=== PATIENT | female | born 1945 | race Caucasian/White ===

== ENCOUNTER 2016-06-18 19:48 | Emergency (ER) | payer MEDICARE, BC ==
--- NOTE | 2016-06-18 20:15 | EDM.PDOC ---
ED HPI GENERAL MEDICAL PROBLEM - General Chief Complaint: General Stated Complaint: COLD CLAMMY Time Seen by Provider: 06/18/16 19:50 Source of Information: Reports: Patient, Family History Limitations: Reports: No limitations - History of Present Illness INITIAL COMMENTS - FREE TEXT/NARRATIVE: 70-year-old female who was standing making a meal suddenly felt real warm, and diaphoretic and lightheaded. She became scared that she was having a stroke or heart attack. She she then became very clammy, pale, felt her pulse which was "slow". She then called her to take her in the hospital and began hyperventilating. On arrival she was hyperventilating and anxious, diaphoretic but had no pain, shortness of breath, nausea or vomiting. Over the next 20 minutes she normalized and her symptoms resolved. O2 saturations were 100% on arrival, initial blood pressure was 165/110. She was very anxious and uncomfortable. Location: Reports: generalized Severity: moderate Associated Symptoms: Reports: diaphoresis, malaise, weakness. Denies: fever/ chills - Related Data Allergies Allergy/AdvReac Type Severity Reaction Status Date / Time TAPE Allergy Rash Uncoded 06/16/14 08:19 Home Meds: Home Meds Aspirin [Adult Low Dose Aspirin EC] 1 tab PO DAILY 06/11/14 [History] Calcium Carbonate/Vitamin D3 [Calcium 250+D] 2 tab PO BID 06/11/14 [History] Ibuprofen 2 tab PO Q6HR 06/11/14 [History] Metoprolol Tartrate [Lopressor] 1 tab PO BID 06/11/14 [History] Sertraline [Zoloft] 0.5 tab PO DAILY 06/11/14 [History] Simvastatin [Zocor] 1 tab PO DAILY 06/11/14 [History] Multivitamin with Minerals [Multiple Vitamin] 1 tab PO DAILY 06/16/14 [History] Past Medical History HEENT History: Reports: Hard of hearing Cardiovascular History: Reports: Angina, High cholesterol, Hypertension Respiratory History: Reports: None MANAGER PARKING History: Reports: Psychiatric History: Reports: Depression Hematologic History: Reports: None Dermatologic History: Reports: Scleroderma - Past Surgical History HEENT Surgical History: Reports: Tonsillectomy Cardiovascular Surgical History: Reports: Other (see below) Other Cardiovascular Surgeries/Procedures: angiogram GI Surgical History: Reports: Appendectomy, Colonoscopy Musculoskeletal Surgical History: Reports: Arthroscopic knee Social & Family History - Tobacco Use Smoking Status *Q: Never Smoker - Caffeine Use Caffeine Use: Reports: None - Alcohol Use Days Per Week of Alcohol Use: 1 Number of Drinks Per Day: 1 Total Drinks Per Week: 1 - Recreational Drug Use Recreational Drug Use: No ED ROS GENERAL - Review of Systems Review Of Systems: See Below Constitutional: Reports: chills, malaise, weakness HEENT: Reports: No symptoms Respiratory: Reports: shortness of breath. Denies: cough Cardiovascular: Reports: Lightheadedness. Denies: Chest pain, Palpitations GI/Abdominal: Denies: Abdominal pain, Nausea, Vomiting : Reports: no symptoms Musculoskeletal: Reports: no symptoms Skin: Reports: diaphoresis Neurological: Reports: paresthesia (Paresthesias developed of the face hands and feet in route to the hospital) Psychiatric: Reports: Anxiety ED EXAM, GENERAL - Physical Exam Exam: See Below Exam Limited By: No limitations General Appearance: alert, no apparent distress Eye Exam: bilateral eye: normal inspection Head: atraumatic Respiratory/Chest: no respiratory distress, lungs clear Cardiovascular: regular rate, rhythm GI/Abdominal: soft, non tender Extremities: normal inspection. No: pedal edema Neurological: alert, oriented Psychiatric: anxious Skin Exam: Warm, Dry Course - Vital Signs Last Recorded V/S: Last Vital Signs Temp 95.5 F 06/18/16 20:39 Pulse 64 06/18/16 19:48 Resp 15 06/18/16 20:39 BP 141/84 H 06/18/16 20:39 Pulse Ox 97 06/18/16 20:39 - Orders/Labs/Meds Orders: Active Orders 24 hr Category Date Time Status EKG Documentation Completion [RC] ASDIRECTED Care 06/18/16 19:50 Active EKG 12 Lead [EK] Routine Ther 06/18/16 19:50 Ordered Labs: Laboratory Tests 06/18/16 06/18/16 Range/Units 19:40 19:40 WBC 6.3 (4.5-11.0) K/uL RBC 4.62 (3.30-5.50) M/uL Hgb 12.8 (12.0-15.0) g/dL Hct 39.4 (36.0-48.0) % MCV 85 (80-98) fL MCH 28 (27-31) pg MCHC 33 (32-36) % Plt Count 217 (150-400) K/uL Neut % (Auto) 51 (36-66) % Lymph % (Auto) 32 (24-44) % [place] % (Auto) 12 H (2-6) % Eos % (Auto) 4 (2-4) % Baso % (Auto) 1 (0-1) % Sodium 138 L (140-148) mmol/L Potassium 3.1 L (3.6-5.2) mmol/L Chloride 102 (100-108) mmol/L Carbon Dioxide 26 (21-32) mmol/L Anion Gap 13.1 (5.0-14.0) mmol/L BUN 23 H (7-18) mg/dL Creatinine 1.0 (0.6-1.0) mg/dL Est Cr Clr Drug Dosing 44.56 mL/min Estimated GFR (MDRD) 55 L (>60) Glucose 105 (74-106) mg/dL Calcium 9.2 (8.5-10.1) mg/dL Total Bilirubin 0.4 (0.2-1.0) mg/dL AST 24 (15-37) U/L ALT 30 (12-78) U/L Alkaline Phosphatase 63 (46-116) U/L Troponin I < 0.017 (0.000-0.056) ng/mL Total Protein 7.0 (6.4-8.2) g/dL Albumin 3.9 (3.4-5.0) g/dL Globulin 3.1 (2.3-3.5) g/dL Albumin/Globulin Ratio 1.3 (1.2-2.2) Meds: Medications Discontinued Medications Generic Name Dose Route Start Last Admin Trade Name Freq PRN Reason Stop Dose Admin Potassium Chloride 20 meq 06/18/16 20:55 06/18/16 21:08 Klor-Con M20 PO 06/18/16 20:56 20 meq ONETIME ONE Administration - Re-Assessments/Exams Free Text/Narrative Re-Assessment/Exam: 06/18/16 21:00 Patient remained comfortable and in normal sinus rhythm. EKG showed no acute findings. Her blood pressure normalized and O2 saturations normalized. Her labs were only significant for a potassium of 3.1, she was given 20 mEq by mouth and a prescription for 30 additional doses of 10 mEq to take one daily. She has a recheck with her primary care provider for a physical examination in one week, her potassium can be rechecked at that time. Departure - Departure Time of Disposition: 21:15 Disposition: Home, Self-Care 01 Condition: good Clinical Impression: Vasovagal near syncope, Hypokalemia Instructions: Hypokalemia, Syncope, [id number] Referrals: Guillaume Howard MD [Primary Care Provider] - Forms: ED Department Discharge Care Plan Goals: Take potassium supplement as prescribed, increase activity and diet as tolerated. Recheck with your primary physician as scheduled. Return anytime sooner if worsening or concerns. - My Orders Last 24 Hours: My Active Orders 06/18/16 19:50 EKG Documentation Completion [RC] ASDIRECTED EKG 12 Lead [EK] Routine - Assessment/Plan Last 24 Hours: My Active Orders 06/18/16 19:50 EKG Documentation Completion [RC] ASDIRECTED EKG 12 Lead [EK] Routine
[2016-06-18 20:42] VITALS: BP 141/84
[2016-06-18] MEDS ORDERED: Potassium Chloride 20 MEQ Tab.ER PO ONE (20:55)
== END 2016-06-18 21:14 | disposition home or self-care (01) ==
LOC: JP.ED 19:48
DX: R55 Syncope and collapse (principal); E87.6 Hypokalemia; E78.00 Pure hypercholesterolemia, unspecified; I10 Essential (primary) hypertension; Z98.890 Other specified postprocedural states; Z79.82 Long term (current) use of aspirin; Z79.899 Other long term (current) drug therapy
CPT/HCPCS: 36415; 80053; 84484; 85025; 93005; 99284; A9270; 93010

== ENCOUNTER 2020-11-22 13:16 | Emergency (ER) | payer MEDICARE, BC ==
[2020-11-22] MEDS ORDERED: methylPREDNISolone Sodium Succinate 125 MG/2 ML SDV IVPUSH ONE (13:17)
--- NOTE | 2020-11-22 14:03 | EDM.PDOC ---
ED HPI GENERAL MEDICAL PROBLEM - General Chief Complaint: Bite:Animal, Insect Stated Complaint: MEDICAL VIA [facility] Time Seen by Provider: 11/22/20 13:30 Source of Information: Reports: Patient, EMS History Limitations: Reports: No Limitations - History of Present Illness INITIAL COMMENTS - FREE TEXT/NARRATIVE: 75-year-old female without any previous reactions to bee stings other than local inflammatory responses, was stung by several hornets at least 9 times, 1 in the left eye, left neck, extremities and abdomen. She felt like her throat was swelling and was having difficulty breathing so called the ambulance. When the ambulance arrived she was stable but very anxious, hyperventilating, and IV was started and she was given 50 mg of IV Benadryl and transportation arranged. In route however she started feeling throat tightening and fullness so she was also given epinephrine. She arrives with localized erythema at the insect sting sites, but no other objective findings, vitals are stable. She is shaky and extremely anxious. Onset: Sudden Duration: Hour(s): (Stung within the last half hour) Location: Reports: Generalized Quality: Reports: Sharp, Stabbing Associated Symptoms: Reports: Malaise, Shortness of Breath, Other (Tremulous) - Related Data Allergies Allergy/AdvReac Type Severity Reaction Status Date / Time TAPE Allergy Rash Uncoded 11/22/20 13:29 Home Meds: Home Meds Calcium Carbonate/Vitamin D3 [Calcium 250+D] 2 tab PO BID 06/11/14 [History] Metoprolol Tartrate [Lopressor] 12.5 tab PO BID 06/11/14 [History] Sertraline [Zoloft] 50 mg PO DAILY 06/11/14 [History] Simvastatin [Zocor] 40 mg PO DAILY 06/11/14 [History] Multivitamin with Minerals [Multiple Vitamin] 0.5 tab PO BID 06/16/14 [History] Acetaminophen 1,500 mg PO Q4H PRN 09/25/19 [History] Ipratropium [Atrovent 0.03% Nasal [place]] 2 spray FELIZ TID PRN 09/25/19 [History] Past Medical History HEENT History: Reports: Hard of Hearing Cardiovascular History: Reports: Angina, High Cholesterol, Hypertension Respiratory History: Reports: None Gastrointestinal History: Reports: None COMPLIANCE SPEC History: Reports: Musculoskeletal History: Reports: None Psychiatric History: Reports: Depression Hematologic History: Reports: None Dermatologic History: Reports: Scleroderma - Past Surgical History Head Surgeries/Procedures: Reports: None HEENT Surgical History: Reports: Tonsillectomy Cardiovascular Surgical History: Reports: Other (See Below) Other Cardiovascular Surgeries/Procedures: angiogram GI Surgical History: Reports: Appendectomy, Colonoscopy Musculoskeletal Surgical History: Reports: Arthroscopic Knee Dermatological Surgical History: Reports: None Social & Family History - Family History Family Medical History: No Pertinent Family History - Tobacco Use Tobacco Use Status *Q: Never Tobacco User Second Hand Smoke Exposure: No - Caffeine Use Caffeine Use: Reports: None - Recreational Drug Use Recreational Drug Use: No ED ROS GENERAL - Review of Systems Review Of Systems: See Below Constitutional: Denies: Fever, Chills HEENT: Reports: Throat Swelling (Sensation of throat swelling). Denies: Vision Change Respiratory: Reports: Shortness of Breath Cardiovascular: Denies: Chest Pain, Palpitations GI/Abdominal: Reports: No Symptoms Skin: Reports: Erythema (Erythema and slight swelling of the insect sting sites) Neurological: Reports: Tingling, Weakness Psychiatric: Reports: Anxiety ED EXAM, ANIMAL BITE - Physical Exam Exam: See Below Exam Limited By: No Limitations General Appearance: Alert, Anxious, Mild Distress Eye Exam: Bilateral Eye: Other (Erythema is present periorbitally around the left eye from a sting on the left lower eyelid) Ears: Normal External Exam Throat/Mouth: Normal Inspection, Other (No objective swelling of the oral mucosa, tongue or uvula) Head: Other (Several bee stings) Neck: Other (Sting site on the left lower neck) Respiratory/Chest: No Respiratory Distress, Lungs Clear Cardiovascular: Regular Rate, Rhythm. No: Tachycardia GI/Abdominal: Normal Bowel Sounds, Soft Neurological: Alert, Oriented Psychiatric: Anxious Course - Vital Signs Last Recorded V/S: Last Vital Signs Temp 96.0 F L 11/22/20 13:27 Pulse 88 11/22/20 14:13 Resp 14 11/22/20 14:13 BP 179/56 H 11/22/20 14:13 Pulse Ox 92 L 11/22/20 14:13 - Orders/Labs/Meds Meds: Medications Discontinued Medications Generic Name Dose Route Start Last Admin Trade Name Freq PRN Reason Stop Dose Admin Methylprednisolone Sodium Succinate 125 mg 11/22/20 13:17 11/22/20 13:21 Methylprednisolone Sodium Succinate 125 Mg/2 Ml Sdv IVPUSH 11/22/20 13:18 125 mg ONETIME ONE Administration - Re-Assessments/Exams Free Text/Narrative Re-Assessment/Exam: 11/22/20 14:02 IVs already been established and she has already received subcutaneous epinephrine and IV Benadryl. She was given 125 mg of Solu-Medrol, and IV hydration continued. She will be observed for any additional symptoms. 11/22/20 15:08 Patient remained very stable for the next 2 hours, continued to improve and feel much better. She was discharged with instructions to repeat Benadryl as needed. A continued dose of ibuprofen or naproxen may help with the localized inflammatory response to the stings. Departure - Departure Time of Disposition: 15:25 Disposition: Home, Self-Care 01 Clinical Impression: Accidental bee sting - Discharge Information Instructions: Bee, Wasp, or Hornet Sting, Adult Referrals: PCP,None [Primary Care Provider] - Forms: ED Department Discharge Care Plan Goals: Cool compresses to sore areas may be helpful, a regular dose of ibuprofen naproxen will help with pain. Increase activity as tolerated and repeating Benadryl every 4-6 hours will help with itching or rash. Return anytime if worsening such as difficulty breathing. Sepsis Event Note (ED) - Evaluation Sepsis Screening Result: No Definite Risk - Focused Exam Vital Signs: Vital Signs Temp Pulse Resp BP Pulse Ox 11/22/20 14:13 88 14 179/56 H 92 L 11/22/20 13:27 96.0 F L 90 21 H 159/58 H 98 11/22/20 13:19 96.0 F L 90 21 H 159/58 H 98
[2020-11-22 14:14] VITALS: BP 179/56; PULSE 88
== END 2020-11-22 15:40 | disposition home or self-care (01) ==
LOC: JP.ED 13:16
DX: T63.441A Toxic effect of venom of bees, accidental (unintentional), initial encounter (principal); E78.00 Pure hypercholesterolemia, unspecified; I10 Essential (primary) hypertension; Z79.899 Other long term (current) drug therapy; Z91.048 Other nonmedicinal substance allergy status
CPT/HCPCS: 96374; 99282; J2930

== ENCOUNTER 2021-03-30 08:21 | Day surgery (SDC) | payer MEDICARE, BC ==
[~2021-03-30 08:21] MED LIST: Sodium Chloride 0.9% 10 ML Syringe FLUSH PRN
[2021-03-30 10:19] VITALS: BP 128/74; PULSE 64
--- NOTE | 2021-03-30 12:11 | OR ---
DATE OF PROCEDURE: 03/30/2021 SURGEON: Tressa Estes MD POSTOPERATIVE CARE: Postoperative care will be provided mainly at the [address] [place] [address] [facility] in conjunction with [facility]. PREOPERATIVE DIAGNOSIS: Cataract, right eye. POSTOPERATIVE DIAGNOSIS: Cataract, right eye. PROCEDURE: Phacoemulsification with intraocular lens placement, right eye. ANESTHESIA: Topical and intracameral. ESTIMATED BLOOD LOSS: Minimal. COMPLICATIONS: None. PATHOLOGY SPECIMENS: None. SURGICAL FINDINGS: None. INDICATION FOR PROCEDURE: The patient is a 75-year-old female with history of a visually significant cataract in the right eye, which interfered with activities of daily living. This consisted of a nuclear sclerosis cataract. Following careful discussion of the risks, benefits and alternatives to cataract extraction with intraocular lens placement including blindness and , the patient elected to proceed, and informed, written consent was obtained prior to the procedure. DESCRIPTION OF THE PROCEDURE: The patient was previously identified, and a charan placed above the right eye. All sources, including the patient, indicated that the right eye was the correct eye. The patient was subsequently taken to the operating room where standard monitors were applied. The patient was then prepped and draped in the usual sterile fashion for ophthalmic surgery. Attention was first directed at the 12 o'clock position where a paracentesis port was fashioned. Shugar solution followed by Viscoat was instilled into the eye. Attention was then directed to the 8:30 position where a triplanar incision was made in a near-clear manner using a keratome. A continuous capsulorrhexis was then made using a combination of the cystotome and Utrata forceps. Hydrodissection was achieved using a balanced salt solution, and the lens rotated nicely. Phacoemulsification was then done using a modified [id number] technique without complication. Phaco time was 5.70 CDE. The remaining cortex was removed using the irrigation/aspiration handpiece. Provisc was then instilled into the eye. A Technis lens, model DIB00, at 18.5 diopters was then placed in the capsular bag using an Antigo injector. The remaining viscoelastic was removed using the irrigation/aspiration forceps. All wounds were then checked and found to be watertight. The lid speculum and drapes were removed. Maxitrol ointment was placed in the patient's right eye, and the eye was shielded. The patient tolerated the procedure well. The patient was instructed to follow up tomorrow. All needle and sponge counts were correct at the end of the procedure. There were no surgical findings. Tressa Estes MD /[id number]
== END 2021-03-30 10:10 | disposition home or self-care (01) ==
LOC: JP.SDS 08:21
PROVIDERS: ATTEND Ophthalmology
DX: H25.11 Age-related nuclear cataract, right eye (principal)
CPT/HCPCS: V2632

== ENCOUNTER 2021-04-27 09:29 | Day surgery (SDC) | payer MEDICARE, BC ==
[2021-04-27] MEDS ORDERED: Sodium Chloride 0.9% 10 ML Syringe FLUSH PRN (09:45)
[2021-04-27 10:39] VITALS: BP 137/71; PULSE 64
== END 2021-04-27 10:50 | disposition home or self-care (01) ==
LOC: JP.SDS 09:29
PROVIDERS: ATTEND Ophthalmology
DX: H25.12 Age-related nuclear cataract, left eye (principal); I10 Essential (primary) hypertension; E78.5 Hyperlipidemia, unspecified
CPT/HCPCS: 66984; V2632